=== PATIENT | female | born 2000 | race Caucasian/White ===

== ENCOUNTER 2019-11-20 02:02 | Emergency (ER) | payer BC ==
[2019-11-20] MEDS ORDERED: Hyoscyamine Sulfate SL 0.125 mg Tablet ONE ×2 (02:35→02:47)
[2019-11-20] MEDS ORDERED: Nitroglycerin 0.4 MG TAB 1 EACH ONE (02:54)
== END 2019-11-20 03:42 | disposition short-term general hospital (02) ==
LOC: BURERS 02:02
DX: T18.128A Food in esophagus causing other injury, initial encounter (principal)
CPT/HCPCS: 96374; J1610